=== PATIENT | female | born 1950 | race Caucasian/White ===

== ENCOUNTER 2024-05-28 08:26 | Outpatient (CLI) | payer MEDICARE, OTHER, SELFPAY ==
[2024-05-28 09:20] LABS: Basophils Percent Auto 0.8 % (0.0-3.0); Hematocrit 29.7 % (33.0-51.0); Hemoglobin* 9.9 gm/dL (12.0-16.0); Immature Granulocytes Pct Auto 6.3 %; Lymphocytes Percent Auto 16.9 % (20-44); Mean Corpuscular HGB Conc 33 gm/dL (32-36); Mean Corpuscular Hemoglobin 33 pg (26-34); Mean Corpuscular Volume 99 fL (80-100); Platelet Count* 136 K/uL (140-440); RDW Coefficient of Variation % 15.6 % (11.5-15.5); Red Blood Count 3.01 m/uL (4.00-5.20); White Blood Count* 2.54 K/uL (4.50-11.00)
[2024-05-28 09:33] LABS: Slide Review Reflex No
== END 2024-05-28 08:27 | disposition home or self-care (01) ==
PROVIDERS: Visit Provider Internal Medicine
DX: C50.512 Malignant neoplasm of lower-outer quadrant of left female breast (principal)
CPT/HCPCS: 36415; 85025